=== PATIENT | male | born 1965 | race Asian ===

== ENCOUNTER 2023-11-23 01:24 | Observation (INO) ==
--- NOTE | 2023-11-23 01:49 | Emergency Department Note ---
Impression & Plan Cholecystitis, Cholelithiasis ED Provider Note CHIEF COMPLAINT: Left upper quadrant abdominal pain HISTORY OF PRESENTING ILLNESS: This 57-year-old male patient presents to the emergency department with a friend for evaluation of left upper quadrant abdominal pain that started 2 hours prior to arrival. The pain came on suddenly. He is also having a lot of nausea and vomiting from the pain and symptoms. Denies any urinary symptoms. He denies any diarrhea, constipation, or problems with his BMs. Denies chest pain or SOB. Denies any fevers. Denies cough or URI symptoms. Denies any reflux symptoms. He states that he had similar symptoms many years ago, but unsure what he was diagnosed with. Denies any known history of pancreatitis. Denies ETOH use. Denies any drug use. Smokes 1 pack a day. No recent changes in medications. He rates the pain as sharp and 10/10. The patient did eat a chili pepper 1 hour prior to the symptoms starting. Last food and drink was at 10 pm and he had vegetables, rice, meat, and a drink. REVIEW OF SYSTEMS: See HPI for pertinent positives and pertinent negatives. ALLERGIES: NKDA MEDICATIONS: None PAST MEDICAL HISTORY: Denies pertinent past medical or pertinent past surgical history PHYSICAL EXAM: VITALS: Vitals are noted on the nurse's note and reviewed by myself. GENERAL: The patient appears in pain and nauseous. He is sticking his fingers down his throat to try and vomit. However, otherwise non toxic and non- diaphoretic. SKIN: Capillary refill <2 sec. EYES: PERRLA. EOMI. Conjunctivae without injection, sclerae without icterus. NOSE: Patent without discharge. MOUTH: Mucous membranes moist. Uvula midline. Airway patent. NECK: Supple without nuchal rigidity. HEART: Regular rate and rhythm without murmurs gallops or rubs. LUNGS: Clear to auscultation bilaterally without wheezes, rales or rhonchi. No retractions or accessory muscle use. ABDOMEN: Positive bowel sounds x 4. Normal tympanic percussion. Soft, tender to palpation diffusely in the upper quadrants, but worse in the epigastric area and RUQ. No masses or organomegaly. No CVA tenderness. Armenta sign positive. No guarding or rebound tenderness. No focal RLQ or LLQ tenderness. MUSCULOSKELETAL: No gross musculoskeletal defects. NEURO: Patient was alert and oriented. No focal neurological deficits. DIFFERENTIAL DIAGNOSIS: Differential diagnosis includes hepatitis, pancreatitis, cholecystitis, cholelithiasis, appendicitis, kidney stone, pyelonephritis, UTI, gastritis, gastroenteritis, mesenteric adenitis, obstruction, constipation, hernia, abdominal abscess, perforation, diverticulitis, IBD, ischemic colitis, abdominal aortic aneurysm, testicular torsion, prostatitis, or others. ED COURSE AND MEDICAL DECISION MAKING: HISTORY FROM INDEPENDENT HISTORIAN: [employer] regulatory intern was used for all communication. MONITOR: Continuous radiation monitor: Order was placed for continuous radiation monitor. Patient was placed on the radiation monitor and continuous pulse ox. Patient was noted to be in normal sinus rhythm at an initial rate of 90 bpm per my interpretation. EKG: EKG was interpreted by myself as normal sinus rhythm at 65 bpm, but no acute ST or T wave changes. MEDICATIONS GIVEN: 2 L normal saline solution bolus, Tylenol 1000 mg IV, Pepcid 20 mg IV, morphine 4 mg IV x 2, Zofran 4 mg IV. K rider. Zosyn 4.5 g IV. INTERPRETATION OF LABS: I interpreted the labs with full lab results as below in the lab section of this note. White blood cell count elevated at 12.88. Hemoglobin normal at 16. Platelet count normal at 191. PT/INR normal. Potassium low at 3.0 and glucose 141. CMP otherwise normal. Lipase normal. High-sensitivity troponin normal. Lactate elevated at 2.1. Repeat lactate level 1.5. Urinalysis with trace glucose, trace ketones, and trace blood without evidence for UTI. Blood cultures pending. INTERPRETATION OF IMAGING: Imaging studies were interpreted by myself and read by radiology as per the imaging section of this note. CT scan of the abdomen pelvis with IV contrast showed cholelithiasis. Prominent calculus noted at the cystic duct measures up to 1.4 cm. Associated with this is gallbladder wall thickening and adjacent stranding. Findings are favored to relate to cholecystitis. The common duct measures up to 1 cm in diameter without evidence of calculus. Findings may be due to extrinsic compression. If there is concern consider MRCP. Mild segmental loss of corticomedullary differentiation noted in the kidneys bilaterally. Findings may be due to sequelae of concurrent pyelonephritis. Consider correlation with laboratory values. Right upper quadrant ultrasound pending at the time of shift change. CONSULTATIONS: Dr. Adhikari of surgery. MDM SUMMARY: I examined the patient. The patient presents with sudden onset of right upper quadrant and epigastric abdominal pain, nausea, and vomiting. The patient was actively vomiting during my exam. An IV lock was placed and labs were drawn. The patient was medicated with IV Tylenol, IV Pepcid, IV morphine, and IV Zofran with improvement of his symptoms. White blood cell count elevated at 12.88 and lactate elevated at 2.1. The patient was given 2 L normal saline solution bolus based on actual body weight. Blood cultures are pending, but there was a delay in obtaining blood cultures by the lab. Antibiotics were not given until after blood cultures were drawn. The patient was given Zosyn 4.5 g IV. The repeat lactate was not automatically reflex ordered and there was also a recollection delay once the repeat lactate level was ordered. Repeat lactate level 1.5. Potassium was low at 3.0 and he was given a K rider. EKG and high-sensitivity troponin were normal and I have a low suspicion for ACS. Lipase was normal. Urinalysis negative for UTI. LFTs and bilirubin were normal. CT scan of the abdomen pelvis with IV contrast showed cholelithiasis as well as cholecystitis. The common bile duct is dilated up to 1 cm, but no evidence of calculus and this may be due to extrinsic compression per radiology. The patient's LFTs and bilirubin are normal. The patient is considered moderate to low risk per cholecystitis protocol. I contacted Dr. Adhikari of surgery. She recommended a right upper quadrant ultrasound for further evaluation prior to determining whether the patient can be admitted for inpatient MRCP or if the patient would require transfer. Due to change of shift, the patient's care was transferred to Isidra Etienne PA-C. The results of the right upper quadrant ultrasound were still pending at the time of shift change. Please refer to her dictation for further details. The patient's care was transferred in stable condition. DIAGNOSIS: Cholelithiasis with cholecystitis seen on CT scan with right upper quadrant ultrasound pending for further evaluation Past Med/Surg History Problem List (Updated 11/23/23 @ 07:58 by Bonnie Jett PA-C) Cholelithiasis (Acute) Cholecystitis (Acute) Social History Smoking Status: Never smoker Feels Safe at Home: Yes Allergies Allergies Allergy/AdvReac Type Severity Reaction Status Date / Time No Known Allergies Allergy Verified 11/23/23 01:40 Home Meds Home Medications Medication Instructions Recorded Confirmed No Known Home Medications 11/23/23 11/23/23 Results & Data (ED) Vital Signs Vital Signs - 24 hr 11/23/23 01:26 11/23/23 01:31 11/23/23 01:54 Temperature 37.2 C Temperature Source Temporal Artery Scan Pulse Rate 70 64 69 Pulse Rate from SpO2 Sensor 68 Respiratory Rate 18 20 24 Respiratory Effort / Characteristics Non-Labored Spontaneous Respiratory Depth Normal Respiratory Pattern Regular Blood Pressure 179/98 H 146/114 H Blood Pressure Mean 125 124 Blood Pressure Position Sitting Pulse Oximetry 98 98 99 Oxygen Delivery Method Room Air Room Air Room Air Sepsis Recent Fever Within 48 Hours No Sepsis New/Unexplained Change in Mental Status No Sepsis Action Taken by Nursing No Action Required 11/23/23 01:55 11/23/23 03:30 11/23/23 04:00 Temperature Temperature Source Pulse Rate 67 70 73 Pulse Rate from SpO2 Sensor 70 Respiratory Rate 21 22 Respiratory Effort / Characteristics Respiratory Depth Respiratory Pattern Blood Pressure 184/107 H 184/103 H Blood Pressure Mean 132 119 Blood Pressure Position Pulse Oximetry 92 92 Oxygen Delivery Method Sepsis Recent Fever Within 48 Hours Sepsis New/Unexplained Change in Mental Status Sepsis Action Taken by Nursing 11/23/23 05:48 Temperature Temperature Source Pulse Rate 71 Pulse Rate from SpO2 Sensor Respiratory Rate Respiratory Effort / Characteristics Respiratory Depth Respiratory Pattern Blood Pressure Blood Pressure Mean Blood Pressure Position Pulse Oximetry Oxygen Delivery Method Sepsis Recent Fever Within 48 Hours Sepsis New/Unexplained Change in Mental Status Sepsis Action Taken by Nursing Laboratory Data 11/23/23 01:50 11/23/23 01:50 Lab Results 11/23/23 11/23/23 11/23/23 Range/Units 01:50 03:00 05:55 WBC 12.88 H (4.8-10.8) K/ul RBC 5.39 (4.70-6.10) M/uL Hgb 16.0 (14.0-18.0) g/dl Hct 47.6 (42.0-52.0) % MCV 88.3 (80.0-100.0) fL MCH 29.7 (25.0-34.0) pg MCHC 33.6 (32.0-36.0) g/dL RDW Std Deviation 41.1 (36.4-46.3) fL RDW Coeff of Mars 12.6 (11.5-14.5) % Plt Count 191 (130-400) K/uL MPV 9.8 (9.4-12.4) fL Immature Gran % (Auto) 0.3 % Neut % (Auto) 77.0 % Lymph % (Auto) 16.8 % Wake % (Auto) 4.8 % Eos % (Auto) 0.8 % Baso % (Auto) 0.3 % Neut # (Auto) 9.92 H (1.40-6.50) K/uL Lymph # (Auto) 2.16 (1.20-3.40) K/uL Wake # (Auto) 0.62 H (0.11-0.59) K/uL Eos # (Auto) 0.10 (0.00-0.50) K/uL Baso # (Auto) 0.04 (0.00-0.20) K/uL Immature Gran # (Auto) 0.04 (0.01-0.20) K/uL PT 10.6 (9.0-12.0) Seconds INR 1.0 (0.9-1.1) Sodium 142 (136-145) mmol/L Potassium 3.0 L (3.5-5.1) mmol/L Chloride 102 (98-107) mmol/L Carbon Dioxide 29 (21-32) mmol/L Anion Gap 11 (3-11) BUN 14 (6-23) mg/dl Creatinine 1.13 (0.6-1.4) mg/dl Est Cr Clr Drug Dosing 61.1 ml/min Est GFR ( Amer) 84.3 ml/min Est GFR (Non-Af Amer) 72.8 ml/min BUN/Creatinine Ratio 12.4 (10-20) Glucose 141 H (70-99(Fasting)) mg/dl Lactate 2.1 H* 1.5 (0.4-2.0) mmol/L Calcium 9.6 (8.6-10.3) mg/dl Total Bilirubin 0.7 (0.2-1.0) mg/dl AST 14 (13-39) U/L ALT 9 (7-52) U/L Alkaline Phosphatase 58 (34-104) U/L Troponin I High Sens 5.8 (0-20) pg/ml Total Protein 7.6 (6.0-8.3) gm/dl Albumin 4.5 (3.4-5.0) gm/dl Globulin 3.1 (2.5-4.0) gm/dl Albumin/Globulin Ratio 1.5 (0.9-2) Lipase 50 (11-82) U/L Urine Color Yellow Urine Appearance Clear (Clear) Urine pH 8.0 H (4.5-7.5) Ur Specific [place] 1.007 (1.000-1.030) Urine Protein Negative (Negative) Urine Glucose (UA) Trace H (Negative) Urine Ketones Trace H (Negative) Urine Blood Trace H (Negative) Urine Nitrite Negative (Negative) Urine Bilirubin Negative (Negative) Urine Urobilinogen Negative (Negative) Ur Leukocyte Esterase Negative (Negative) Urine WBC (Auto) 0-5 (0-5) /hpf Urine RBC (Auto) 3-5 H (0-2) /hpf U Hyaline Cast (Auto) 0-2 (0-2) /lpf U Epithel Cells (Auto) 0-2 (0-2) /hpf Urine Bacteria (Auto) None Seen (None Seen) Administered Medications Discontinued Medications Acetaminophen (Ofirmev) 1,000 mg in 100 mls @ 400 mls/hr IV NOW STA Stop: 11/23/23 02:20 Last Infusion: 11/23/23 02:43 Dose: Infused Documented By: Admin: 11/23/23 02:10 Dose: 400 mls/hr Documented By: JOHNNIE Famotidine (Pepcid 20mg Iv Push) 20 mg in 5 mls @ 2.5 mls/min IV NOW STA Stop: 11/23/23 02:07 Last Admin: 11/23/23 02:10 Dose: 2.5 mls/min Documented By: JOHNNIE Sodium Chloride (Nss) 1,000 mls @ 999 mls/hr IV .Q1H1M ONE Stop: 11/23/23 03:07 Last Infusion: 11/23/23 03:44 Dose: Infused Documented By: Admin: 11/23/23 02:10 Dose: 999 mls/hr Documented By: JOHNNIE Sodium Chloride (Nss) 1,000 mls @ 999 mls/hr IV .Q1H1M ONE Stop: 11/23/23 03:40 Last Infusion: 11/23/23 05:10 Dose: Infused Documented By: Admin: 11/23/23 03:26 Dose: 999 mls/hr Documented By: WANDA Potassium Chloride (K Michi / Wtr) 10 meq in 100 mls @ 100 mls/hr IV ONE ONE Stop: 11/23/23 03:40 Last Infusion: 11/23/23 05:09 Dose: Infused Documented By: Admin: 11/23/23 03:25 Dose: 100 mls/hr Documented By: WANDA Piperacillin Sod/Tazobactam Sod (Zosyn) 4.5 gm in 100 mls @ 200 mls/hr IV NOW ONE Stop: 11/23/23 05:08 Last Infusion: 11/23/23 06:08 Dose: Infused Documented By: Admin: 11/23/23 05:15 Dose: 200 mls/hr Documented By: WANDA Ioversol (Optiray 320 100ml) 94 ml IV ONCE ONE Stop: 11/23/23 04:14 Last Admin: 11/23/23 04:13 Dose: 94 ml Documented By: WILLY Morphine Sulfate (Morphine Sulfate 4 Mg/Ml 1 Ml Carp\Vial) 4 mg IV NOW STA Stop: 11/23/23 03:16 Last Admin: 11/23/23 03:20 Dose: 4 mg Documented By: WANDA Morphine Sulfate (Morphine Sulfate 4 Mg/Ml 1 Ml Carp\Vial) 4 mg IV NOW STA Stop: 11/23/23 05:37 Last Admin: 11/23/23 07:21 Dose: Not Given Documented By: MEL Ondansetron HCl (Ondansetron Inj 2 Mg/Ml 2 Ml Vial) Confirm Administered Dose 4 mg .ROUTE .STK-MED ONE Stop: 11/23/23 01:48 Last Admin: 11/23/23 02:10 Dose: 4 mg Documented By: RIDGEW Imaging Data Radiologist's Impression: Abdomen/Pelvis CT 11/23/23 01:32 CR Exam(s): CT ABDOMEN + PELVIS With Contrast IV Amt: 94 ml opti 320 EXAM: CT Abdomen and Pelvis With Intravenous Contrast CLINICAL HISTORY: Reason for exam: abdominal pain. TECHNIQUE: Axial computed tomography images of the abdomen and pelvis with intravenous contrast. CTDI is 8.58 mGy and DLP is 517 mGy-cm. Automated exposure control was utilized for the study. A dose lowering technique was utilized adhering to the principles of ALARA. CONTRAST: Patient received 94 ml opti 320 of IV contrast COMPARISON: No relevant prior studies available. FINDINGS: Lung bases: Mild dependent atelectatic changes. Heart: Cardiomegaly. Coronary artery calcifications. ABDOMEN: Liver: Mild intrahepatic biliary dilatation. No mass detected. Gallbladder and bile ducts: Cholelithiasis. Prominent calculus noted at the cystic duct measures up to 1.4 cm. Associated with this is gallbladder wall thickening and adjacent stranding. Findings are favored to relate to cholecystitis. The common duct measures up to 1.0 cm in diameter without evidence of calculus. Findings may be due to extrinsic compression. If there is further concern, consider MRCP. Pancreas: Unremarkable. No mass. No ductal dilation. Spleen: Unremarkable. No splenomegaly. Adrenals: Unremarkable. No mass. Kidneys and ureters: Simple bilateral renal cysts. No follow-up of these simple cysts is necessary. Mild segmental loss of corticomedullary differentiation noted in the kidneys bilaterally. Findings may be due to sequela of concurrent pyelonephritis. Consider correlation with laboratory values. No hydronephrosis. Stomach and bowel: No evidence of bowel obstruction. No mucosal thickening. PELVIS: Appendix: Normal appendix. Bladder: Unremarkable. No mass. Reproductive: Prostatic calcifications. ABDOMEN and PELVIS: Intraperitoneal space: Unremarkable. No free air. No significant fluid collection. Bones/joints: Degenerative changes in the spine. No acute fracture. No dislocation. Soft tissues: Gynecomastia. Umbilical hernia containing fat. Vasculature: Atherosclerotic disease. No abdominal aortic aneurysm. Lymph nodes: Unremarkable. No enlarged lymph nodes. IMPRESSION: 1. Cholelithiasis. Prominent calculus noted at the cystic duct measures up to 1.4 cm. Associated with this is gallbladder wall thickening and adjacent stranding. Findings are favored to relate to cholecystitis. 2. The common duct measures up to 1.0 cm in diameter without evidence of calculus. Findings may be due to extrinsic compression. If there is further concern, consider MRCP. 3. Mild segmental loss of corticomedullary differentiation noted in the kidneys bilaterally. Findings may be due to sequela of concurrent pyelonephritis. Consider correlation with laboratory values. 4. Other incidental findings as described. Communications: Verify Receipt Electronically signed by: Raffaele Medina MD 11/23/23 04:36 AM Discharge Plan Visit Data Chief Complaint: Abdominal Pain ED Provider: Chioma Uriarte ED Midlevel Provider: Scottie Etienne Discharge Problem: Cholecystitis, Cholelithiasis Patient Disposition: Still a Patient Forms Stand Alone Forms: [facility] Processing Prescriptions Prescriptions: No Action No Known Home Medications Referrals Referrals: PCP,NO [Primary Care Provider] -
[2023-11-23] MEDS: FAMOTIDINE 20MG IV PUSH 20 MG/5 ML SYR IV STA (02:10)
[2023-11-23] MEDS: SODIUM CHLORIDE 0.9% 1,000 ML IV ONE ×2 (02:10→03:26)
[2023-11-23] MEDS: ACETAMINOPHEN 1,000 MG/100 ML VIAL IV STA (02:10)
[2023-11-23] MEDS: ONDANSETRON INJ 2 MG/ML 2 ML VIAL ONE (02:10)
[2023-11-23 02:11] LABS: Basophils # (auto) 0.04 K/uL (0.00-0.20); Basophils % (auto) 0.3 %; Eosinophils % (auto) 0.8 %; Hematocrit (blood only) 47.6 % (42.0-52.0); Immature Granulocytes # (auto) 0.04 K/uL (0.01-0.20); Immature Granulocytes % (auto) 0.3 %; Lymphocytes # (auto) 2.16 K/uL (1.20-3.40); Lymphocytes % (auto) 16.8 %; Mean Corpuscular Hemoglobin 29.7 pg (25.0-34.0); Mean Corpuscular Hgb Conc 33.6 g/dL (32.0-36.0); Mean Corpuscular Volume 88.3 fL (80.0-100.0); Mean Platelet Volume 9.8 fL (9.4-12.4); Monocytes # (auto) 0.62 K/uL (0.11-0.59); Monocytes % (auto) 4.8 %; Neutrophils # (auto) 9.92 K/uL (1.40-6.50); Platelet Count 191 K/uL (130-400); RDW Coefficient of Variation 12.6 % (11.5-14.5); RDW Standard Deviation 41.1 fL (36.4-46.3); Red Blood Count 5.39 M/uL (4.70-6.10); White Blood Count 12.88 K/ul (4.8-10.8)
[2023-11-23 02:24] LABS: Albumin Level 4.5 gm/dl (3.4-5.0); Bilirubin,Total 0.7 mg/dl (0.2-1.0); Calcium 9.6 mg/dl (8.6-10.3)
[2023-11-23 02:31] LABS: Albumin Globulin Ratio 1.5 (0.9-2); BUN Creatinine Ratio 12.4 (10-20); Creatinine Clr Calc Pharmacy 61.1 ml/min; Est GFR (African American) 84.3 ml/min; Est GFR (Non-African American) 72.8 ml/min; Globulin 3.1 gm/dl (2.5-4.0); Total Protein 7.6 gm/dl (6.0-8.3)
[2023-11-23 02:32] LABS: Prothrombin Time 10.6 Seconds (9.0-12.0)
[2023-11-23 02:36] LABS: Troponin I High Sensitivity 5.8 pg/ml (0-20)
[2023-11-23] MEDS: MoRPHine SULFATE 4 MG/ML 1 ML CARP\\VIAL IV STA ×2 (03:20→07:21)
[2023-11-23] MEDS: POTASSIUM CHLORIDE / WTR 10 MEQ/100 ML PLCT IV ONE (03:25)
[2023-11-23 03:29] LABS: Appearance Urine Clear (Clear); Bacteria Urine Automated None Seen (None Seen); Bilirubin Urine Negative (Negative); Blood Urine Trace (Negative); Cast Urine Automated 0-2 /lpf (0-2); Color Urine Yellow; Epithelial Cell Urine Auto 0-2 /hpf (0-2); Glucose Urine UA Trace (Negative); Ketones Urine Trace (Negative); Leukocyte Esterase Urine Negative (Negative); Nitrite Urine Negative (Negative); Protein Urine Negative (Negative); Specific Gravity Urine 1.007 (1.000-1.030); Urobilinogen Urine Negative (Negative); WBC Urine Automated 0-5 /hpf (0-5)
[2023-11-23] MEDS: OPTIRAY 320 100ml IV ONE (04:13)
--- NOTE | 2023-11-23 04:37 | CT Scan Report ---
Exam(s): CT ABDOMEN + PELVIS With Contrast IV Amt: 94 ml opti 320 EXAM: CT Abdomen and Pelvis With Intravenous Contrast CLINICAL HISTORY: Reason for exam: abdominal pain. TECHNIQUE: Axial computed tomography images of the abdomen and pelvis with intravenous contrast. CTDI is 8.58 mGy and DLP is 517 mGy-cm. Automated exposure control was utilized for the study. A dose lowering technique was utilized adhering to the principles of ALARA. CONTRAST: Patient received 94 ml opti 320 of IV contrast COMPARISON: No relevant prior studies available. FINDINGS: Lung bases: Mild dependent atelectatic changes. Heart: Cardiomegaly. Coronary artery calcifications. ABDOMEN: Liver: Mild intrahepatic biliary dilatation. No mass detected. Gallbladder and bile ducts: Cholelithiasis. Prominent calculus noted at the cystic duct measures up to 1.4 cm. Associated with this is gallbladder wall thickening and adjacent stranding. Findings are favored to relate to cholecystitis. The common duct measures up to 1.0 cm in diameter without evidence of calculus. Findings may be due to extrinsic compression. If there is further concern, consider MRCP. Pancreas: Unremarkable. No mass. No ductal dilation. Spleen: Unremarkable. No splenomegaly. Adrenals: Unremarkable. No mass. Kidneys and ureters: Simple bilateral renal cysts. No follow-up of these simple cysts is necessary. Mild segmental loss of corticomedullary differentiation noted in the kidneys bilaterally. Findings may be due to sequela of concurrent pyelonephritis. Consider correlation with laboratory values. No hydronephrosis. Stomach and bowel: No evidence of bowel obstruction. No mucosal thickening. PELVIS: Appendix: Normal appendix. Bladder: Unremarkable. No mass. Reproductive: Prostatic calcifications. ABDOMEN and PELVIS: Intraperitoneal space: Unremarkable. No free air. No significant fluid collection. Bones/joints: Degenerative changes in the spine. No acute fracture. No dislocation. Soft tissues: Gynecomastia. Umbilical hernia containing fat. Vasculature: Atherosclerotic disease. No abdominal aortic aneurysm. Lymph nodes: Unremarkable. No enlarged lymph nodes. IMPRESSION: 1. Cholelithiasis. Prominent calculus noted at the cystic duct measures up to 1.4 cm. Associated with this is gallbladder wall thickening and adjacent stranding. Findings are favored to relate to cholecystitis. 2. The common duct measures up to 1.0 cm in diameter without evidence of calculus. Findings may be due to extrinsic compression. If there is further concern, consider MRCP. 3. Mild segmental loss of corticomedullary differentiation noted in the kidneys bilaterally. Findings may be due to sequela of concurrent pyelonephritis. Consider correlation with laboratory values. 4. Other incidental findings as described. Communications: Verify Receipt Electronically signed by: Raffaele Medina MD 11/23/23 04:36 AM
[2023-11-23] MEDS: PIPERACILLIN/TAZOBACTAM 4.5 GM/100 ML BAG IV ONE (05:15)
--- NOTE | 2023-11-23 08:02 | Ultrasound Report ---
ABDOMINAL ULTRASOUND, RIGHT UPPER QUADRANT HISTORY: Cholelithiasis/cholecystitis on CT with CBD dilated. COMPARISON: Abdomen and pelvis CT 11/23/2023. FINDINGS: Pancreas: The pancreas demonstrates a normal echotexture. Liver: Mild central intrahepatic bile duct dilatation. No hepatic masses. Gallbladder: Diffuse gallbladder wall thickening with a few gallstones and a small amount of sludge. Gallbladder is distended. A sonographic Armenta's sign was unable to be assessed due to the on board p ain medication. There is also a 1.2 cm gallstone within the neck of the gallbladder which could be im pacted. CBD: Borderline dilated up to 6.6 mm. No stones identified. Right kidney: No hydronephrosis. There is a 1.9 cm lesion within the upper pole the right kidney whic h demonstrates internal echoes. This may represent a complex cyst. IMPRESSION: 1. Distended gallbladder with diffuse gallbladder wall thickening, gallstones, a small amount of slud ge. There is also a 1.2 cm gallstone within the neck of the gallbladder which may be impacted. Theref ore, these findings are highly suspicious for acute cholecystitis. Surgical consultation recommended. 2. Borderline dilated common carotid measuring 6.6 mm. No common bile duct stones identified. 3. A 1.9 cm complex cystic lesion within the upper pole the right kidney. This may represent a hemorr hagic cyst. Consider follow-up nonemergent dedicated renal MRI or CT to exclude a cystic renal mass. ACT 112: Positive. There are findings on this exam that require communication between the performing entity and the patient following Patient Test Result Information Act ([place] Act 112) guidelines. Electronically signed by: Viktor Ha M.D. 11/23/2023 8:00 AM
--- NOTE | 2023-11-23 09:33 | Emergency Department Note ---
ED Visit Note ED NOTE: Received this patient in signout from Janet Jett PA-C, at change of shift. Refer to her dictation for the complete history, physical exam and ED course to this point. Briefly patient is a 57-year-old male who presented to the emergency department for evaluation of upper abdominal pain, abrupt in onset with associated nausea and vomiting. Change of shift, ultrasound the gallbladder was pending. Laboratory studies and CT scan already performed were reviewed by myself. Ultrasound per my interpretation notes the gallbladder to be distended, with gallbladder wall thickening, stones and sludge. Findings are concerning for acute cholecystitis. I did review the patient with Shellie Rothman PA-C, working with Dr. Robson Knight this morning. They evaluated the patient in the emergency department and are going to take him to the OR. Please refer to surgical H&P for further information.
--- NOTE | 2023-11-23 09:37 | Surgery Consultation ---
Date of Consultation November 23, 2023 Assessment & Plan (1) Cholelithiasis: Patient see and examined with Dr. Adhikari. Recent ED labwork and imaging reviewed. There is a 1.2 cm gallstone located in the neck of the gallbladder. Patient is tender with palpation in right upper quadrant. Recommendation is surgical removal of gallbladder. Patient has been booked for Laparoscopic Cholecystectomy, Possible Open Cholecystectomy with Possible Intraoperative Cholangiogram in OR today. He has been NPO since last e vening at 10PM. He has no history of abdominal surgeries. He does not currently take any daily medications or supplements. He is a current smoker. Risks of surgery were reviewed with patient by Dr. Adhikari. Consent for surgery signed by patient with Dr. dAhikari. Patient likely to be admitted for overnight observation with possible discharge tomorrow depending on intraoperative findings and post-op course. History of Present Illness Reason for Consultation: Acute Cholecystitis History of Present Illness History and Physical obtained with use of translator and interpreter services: 57-year-old male with right upper quadrant abdominal pain that began last night around 10PM. He notes that he has had episodes of pain like this before. When he arrived to ED, he did admit to nausea and vomiting. His nausea is improved with IV medications. His last oral intake was at 10PM last night. He denies any past abdominal surgeries. ED course: Labwork shows slightly elevated WBC at 12.88, Total Bilirubin 0.7; AST 14; ALT 9; Alk Phos 58 CT of abdomen IMPRESSION: 1. Cholelithiasis. Prominent calculus noted at the cystic duct measures up to 1.4 cm. Associated with this is gallbladder wall thickening and adjacent stranding. Findings are favored to relate to cholecystitis. 2. The common duct measures up to 1.0 cm in diameter without evidence of calculus. Findings may be due to extrinsic compression. 3. Mild segmental loss of corticomedullary differentiation noted in the kidneys bilaterally. Findings may be due to sequela of concurrent pyelonephritis. Consider correlation with laboratory values. Gallbladder ultrasound was obtained which showed: IMPRESSION: 1. Distended gallbladder with diffuse gallbladder wall thickening, gallstones, a small amount of sludge. There is also a 1.2 cm gallstone within the neck of the gallbladder which may be impacted. Therefore, these findings are highly suspicious for acute cholecystitis. Surgical consultation recommended. 2. Borderline dilated common carotid measuring 6.6 mm. No common bile duct stones identified. 3. A 1.9 cm complex cystic lesion within the upper pole the right kidney. This may represent a hemorrhagic cyst. Consider follow-up nonemergent dedicated renal MRI or CT to exclude a cystic renal mass. Allergies Allergy/AdvReac Type Severity Reaction Status Date / Time No Known Allergies Allergy Verified 11/23/23 01:40 Home Medications Medication Instructions Recorded Confirmed Type No Known Home Medications 11/23/23 11/23/23 History Patient History Social History Smoking Status: Current every day smoker Hx Alcohol Use: Yes Communication Tools: IPad Feels Safe at Home: Yes Review of Systems Constitutional: as per Subjective / HPI; no fever and no chills Respiratory: no cough, no chest congestion, no dyspnea, no dyspnea on exertion and no wheezing Cardiovascular: no chest pain, no chest pain at rest, no chest pain with activity, no radiating jaw, neck or arm pain, no dyspnea, no dyspnea at rest and no dyspnea on exertion Gastrointestinal: + abdominal pain (left and right upper q uadrants), + nausea and + vomiting Physical Exam Constitutional: WD/WN, vitals as above Respiratory: normal respiratory effort; no respiratory distress and no labored breathing Cardiovascular: RRR, no murmur, no edema Gastrointestinal (Abdomen): Inspection/Auscultation: abdomen not distended Percussion/Palpation: + abdomen tender (tender with palpation in right and left upper quadrants) and abdomen soft; no guarding and abdomen not rigid Psychiatric: A+Ox3, euthymic affect Results & Data Vital Signs (Past 12 Hours) Vital Signs Temp Pulse Pulse Resp BP BP Pulse Ox 11/23/23 09:27 68 21 155/96 H 95 11/23/23 07:08 36.7 C 11/23/23 07:00 67 15 166/100 H 95 11/23/23 05:48 71 11/23/23 04:00 73 22 184/103 H 92 11/23/23 03:30 70 21 184/107 H 92 11/23/23 01:55 67 11/23/23 01:54 69 24 146/114 H 99 11/23/23 01:31 37.2 C 64 20 179/98 H 98 11/23/23 01:26 70 18 98 O2 Del Method 11/23/23 09:27 Room Air 11/23/23 07:08 11/23/23 07:00 Room Air 11/23/23 05:48 11/23/23 04:00 11/23/23 03:30 11/23/23 01:55 11/23/23 01:54 Room Air 11/23/23 01:31 Room Air 11/23/23 01:26 Room Air PG Care Time/CCT Total # of Minutes Spent Total Time Spent with Patient: Total time spent is greater than 50% in coordination of care (as documented) at patient's floor/unit and/or counseling patient: Coding Level of Care Code 74623 OFFICE CONSULT LVL M (25 - SIGNIFICANT, SEPARATELY IDENTIFIABLE ) Diagnoses Cholelithiasis K80.20
[2023-11-23] MEDS ORDERED: ACETAMINOPHEN 1000 MG/100 ML IV IV ONE (09:46)
[2023-11-23] MEDS ORDERED: fentaNYL citrate PF 100 MCG/2 ML VIAL ONE (09:59)
[2023-11-23] MEDS ORDERED: MIDAZOLAM HCL 1 MG/ML 2ML VIAL ONE (09:59)
[2023-11-23] MEDS ORDERED: METOCLOPRAMIDE HCL INJ 5 MG/ML 2 ML VIAL ONE (10:04)
[2023-11-23] MEDS ORDERED: ONDANSETRON INJ 2 MG/ML 2 ML VIAL ONE (10:04)
[2023-11-23] MEDS ORDERED: DEXAMETHASONE SOD INJ 4 MG/ML VIAL ONE (10:04)
[2023-11-23] MEDS ORDERED: LIDOCAINE 2% 2 ML VIAL/AMP(20MG/ML) INFIL ONE (10:04)
[2023-11-23] MEDS ORDERED: PROPOFOL IV EMULSION 10 MG/ML 20 ML VIAL IV ONE (10:04)
[2023-11-23] MEDS ORDERED: ROCURONIUM BROMIDE 10 MG/ML 5 ML VIAL IV ONE (10:04)
--- NOTE | 2023-11-23 10:24 | Anesthesiology Consultation ---
Date of Service November 23, 2023 Assessment & Plan Chart Review Chart Review: Acceptable Risk for Surgery and Patient NOT seen in Pre Admission Testing Consults Requested none ASA ASA2E Proposed Anesthesia Anesthesia Type: General Risk / Benefits Reviewed With: PT / POA / Parent / Guardian, Accepts Plan and Informed Consent Obtained History Surgery Operation Date: 11/23/23 10:45 Proposed Procedures p Laparoscopic Cholecystectomy - Alex Adhikari DO Height/Weight Height: 5 ft 9.29 in Weight: 58.5 kg Allergies Allergy/AdvReac Type Severity Reaction Status Date / Time No Known Allergies Allergy Verified 11/23/23 01:40 Medications Home Medications Medication Instructions Recorded Confirmed Last Taken No Known Home Medications 11/23/23 11/23/23 Unknown NPO Date Last Intake of Fluids: 11/22/23 Time Last Intake of Fluids: 22:00 Date Last Intake of Solids: 11/22/23 Time Last Intake of Solids: 22:00 Past Medical History + tobacco smoker HLD HTN ASCVD Aorta coronary artery calcifications Exercise / Class Metabolic Activity II 4-5 Yardwork/Stairs/Walk up hill Past Anesthesia History No Hx of Anesthesia Complications and No Family Hx of Anesthesia Complications History of PONV No Hx of PONV and No Hx of Motion Sickness Social History Smoking Status: Current every day smoker Hx Alcohol Use: Yes Physical Exam Vital Signs Last Vital Signs Temp 36.7 C 11/23/23 07:08 Pulse 68 11/23/23 09:27 Resp 21 11/23/23 09:27 BP 155/96 H 11/23/23 09:27 Pulse Ox 95 11/23/23 09:27 O2 Del Method Room Air 11/23/23 09:27 Constitutional not cachectic ENMT Mouth: + dentition abnormality, + dentures and + dental restorations Thyromental Distance: < 3.5 Finger Breadths Mallampati Class: III Neck normal visual inspection, trachea midline and + facial hair; neck extension not limited Respiratory normal respiratory effort Auscultation: lungs clear to auscultation bilaterally Cardiovascular Rate/Rhythm: regular rate and regular rhythm Heart Sounds: no murmur Vessels: no carotid bruit Musculoskeletal Spine: normal cervical ROM and no pain with cervical ROM Extremities: full ROM of extremities Neurologic moves all extremities Motor/Sensory: no sensory deficit Psychiatric Orientation: alert and oriented x 3 Testing Laboratory Results 11/23/23 01:50 11/23/23 01:50 PT 10.6 Seconds (9.0-12.0) 11/23/23 01:50 INR 1.0 (0.9-1.1) 11/23/23 01:50 Urine Color Yellow 11/23/23 03:00 Urine Appearance Clear (Clear) 11/23/23 03:00 Urine pH 8.0 (4.5-7.5) H 11/23/23 03:00 Ur Specific [place] 1.007 (1.000-1.030) 11/23/23 03:00 Urine Protein Negative (Negative) 11/23/23 03:00 Urine Glucose (UA) Trace (Negative) H 11/23/23 03:00 Urine Ketones Trace (Negative) H 11/23/23 03:00 Urine Nitrite Negative (Negative) 11/23/23 03:00 Ur Leukocyte Esterase Negative (Negative) 11/23/23 03:00 Urine WBC (Auto) 0-5 /hpf (0-5) 11/23/23 03:00 Urine RBC (Auto) 3-5 /hpf (0-2) H 11/23/23 03:00 U Hyaline Cast (Auto) 0-2 /lpf (0-2) 11/23/23 03:00 U Epithel Cells (Auto) 0-2 /hpf (0-2) 11/23/23 03:00 Urine Bacteria (Auto) None Seen (None Seen) 11/23/23 03:00 Electrocardiogram Date: 11/23/23 Findings: + NSR @ (@ 65)
[2023-11-23] MEDS ORDERED: LARYING-O-JET KIT (LTA) ONE (10:32)
[2023-11-23] MEDS ORDERED: ATROPINE SULFATE 0.1 MG/ML 10ML SYR IV PRN (10:36)
[2023-11-23] MEDS ORDERED: LABETALOL HCL IV 5 MG/ML 20ML IV PRN (10:36)
[2023-11-23] MEDS ORDERED: ePHEDrine sulfate 50 MG/ML AMP IV PRN (10:36)
[2023-11-23] MEDS ORDERED: FLUMAZENIL 0.1 MG/1 ML 10 ML VIAL IV PRN (10:36)
[2023-11-23] MEDS ORDERED: PROMETHAZINE HCL 6.25 MG in SODIUM CHLORIDE 0.9% 50 ML IV PRN (10:36)
[2023-11-23] MEDS ORDERED: ONDANSETRON INJ 2 MG/ML 2 ML VIAL IV PRN ×2 (10:36→12:57)
[2023-11-23] MEDS ORDERED: fentaNYL citrate PF 100 MCG/2 ML VIAL IV PRN (10:36)
[2023-11-23] MEDS ORDERED: NALOXONE HCL 0.4 MG/1 ML VIAL/CARP IV PRN (10:36)
[2023-11-23] MEDS ORDERED: HYDROmorphone INJ 1 MG/ML SYRINGE IV PRN (10:36)
[2023-11-23] MEDS ORDERED: ePHEDrine sulfate 50 MG/5 ML SYR ONE (11:11)
[2023-11-23] MEDS ORDERED: PHENYLEPHRINE 100MCG/ML 10ML SYR IV ONE (11:11)
[2023-11-23] MEDS ORDERED: SUGAMMADEX SODIUM 200 MG/2 ML VIAL IV ONE (11:55)
[2023-11-23] MEDS: BUPIVACAINE/EPINEPHRINE 0.5% MPF 1:200,000 30 ML VIAL ONE (12:43)
[2023-11-23] MEDS: cefOXitin SOD 1,000 MG VIAL ONE (12:53)
[2023-11-23] MEDS: ceFAZolin 2000MG 2,000 MG/15 ML SYR IV ONE (12:53)
[2023-11-23] MEDS ORDERED: ACETAMINOPHEN 500 MG TAB PO PRN (12:57)
[2023-11-23] MEDS ORDERED: PROMETHAZINE HCL 12.5 MG in SODIUM CHLORIDE 0.9% 50 ML IV PRN (12:57)
[2023-11-23] MEDS ORDERED: oxyCODONE/ACETAMINOPHEN 5mg/325mg TAB PO PRN ×2 (12:57)
--- NOTE | 2023-11-23 13:03 | Operative Report ---
PG Post Operative Report Pre & Post Diagnosis Operation Date: 11/23/23 10:45 Pre-Op Diagnosis: Cholelithiasis Post-Op Diagnosis: Cholelithiasis I identified the patient and participated in the time-out.: Yes Procedure Operation Date: 11/23/23 10:45 Actual Procedures p Laparoscopic Cholecystectomy(Not Applicable) - Alex Adhikari DO Surgeon Alex Adhikari DO Animal Treatment Investigator JAIME Hensley Estimated Blood Loss 5 Findings See Below Very edematous, thickened gallbladder with pericholecystic fluid. Difficult gallbladder. Specimens Gallbladder Drains None Anesthesia Type General Complications None Indications 57-year-old male with acute cholecystitis ongoing right upper quadrant pain Description of Procedure The patient was brought back to the operating room and placed on the operating room table in supine position. He was connected to cardiac and oxygen monitoring. Supplemental O2 was provided and SCDs were applied to bilateral lower extremities. The patient was administered general anesthesia and a secure airway was established. The abdomen was prepped and draped in typical sterile fashion and a timeout was conducted. Local anesthetic was injected into the skin and subcutaneous tissue at the infraumbilical fold and a small stab incision was made using an 11 blade. A Veress needle was used to gain access to the intra-abdominal space and pneumoperitoneum was established local pressure 15 mmHg using CO2 insufflation. A 5 mm trocar was inserted using direct visualization with a 5 mm Visiport and laparoscope. Once in the intra-abdominal space, the gallbladder was noted distended at the right upper quadrant. Attention was turned to the epigastric area where an 11 mm trocar was inserted under direct visualization after anesthetizing the skin and making an incision with 11 blade. 2 additional 5 mm trocars were inserted at the right subcostal margin in the same fashion and using direct visualization. There were no injuries because any intra-abdominal contents upon the insertion of any of the trocars or Veress needle. The gallbladder was very distended and was grasped at the fundus to be retracted superiorly. There were soft adhesions to the lower half of the gallbladder which were carefully dissected away using blunt dissection with the suction device. Due to the distention of the gallbladder and difficulty with retraction retraction was difficult secondary to significant distention and the grasper had to be altered multiple times to better aid in visualization and retraction. The infundibulum was grasped and further blunt dissection was performed in an effort to expose the cystic triangle. A structure came into view the appeared to be the cystic duct but this had extensive thickened bands of adhesion wrapping around from the lower portion of the gallbladder so further careful blunt dissection was performed to completely expose the structure and confirm that it was in fact the cystic duct. To further confirm, the full cystic triangle was completely dissected. There was a small amount of bleeding from the lymph node. This was controlled using gentle cautery. The fatty tissue here was extremely thickened and small amounts of bleeding occurred with blunt dissection. Eventually the critical view was fully obtained identifying the cystic duct, cystic artery and the belly of the gallbladder at the liver bed. At this time the cystic duct and cystic artery were ligated with 5 mm clips and transected. The gallbladder was carefully dissected away from the liver bed using cautery. Bleeding throughout this part of the dissection was controlled with cautery at the liver bed. The gallbladder was placed in an Endo Catch bag and removed from the abdomen via epigastric incision. Of note this incision did have to be enlarged at the level of the peritoneum and muscle to remove the gallbladder which contained very large stones. The gallbladder was placed in a label container and sent to pathology for further analysis. The liver bed was inspected multiple times for bleeding. There was no bleeding identified. The area had been copiously irrigated and ir rigant was suctioned away. All instruments were removed from the abdomen, CO2 insufflation was discontinued, and excess pneumoperitoneum was evacuated. The epigastric incision was closed at the level of the fascia with 0 Vicryl sutures. Additional local anesthetic was injected at this incision site as well as the other 3 incision sites. The deep dermis at the epigastric incision was approximated using 3-0 Vicryl suture. The umbilical and 2 subcostal incisions were closed with a subcuticular stitch using 4-0 Vicryl. The abdomen was wiped clean with a saline soaked lap pad and dried. All incisions were dressed with Dermabond. The patient tolerated the procedure well. He was awakened from anesthesia, the secure airway was removed and the patient was transferred to recovery in stable condition. The assistance role in this case was to help with retraction and consistent exposure throughout the case to a critical dissection as well as skin closure. I attest to the content of the Intraoperative Record and any orders documented therein. Any exceptions are noted below.
--- NOTE | 2023-11-23 14:29 | Anesthesiology Progress Note ---
Date of Service November 23, 2023 Anesthesia Post Procedure Vital Signs Vital Signs: Temp Pulse Pulse Pulse Resp BP BP 11/23/23 14:20 36.8 C 73 16 148/82 H 11/23/23 14:05 75 16 155/87 H 11/23/23 13:50 36.8 C 70 16 148/84 H 11/23/23 13:40 68 17 148/81 H 11/23/23 13:30 70 14 145/82 H 11/23/23 13:20 68 13 143/76 H 11/23/23 13:10 71 13 149/77 H 11/23/23 13:00 36.5 C 77 12 151/78 H 11/23/23 09:27 68 21 11/23/23 07:08 36.7 C 11/23/23 07:00 67 15 166/100 H 11/23/23 05:48 71 11/23/23 04:00 73 22 184/103 H 11/23/23 03:30 70 21 184/107 H 11/23/23 01:55 67 11/23/23 01:54 69 24 146/114 H 11/23/23 01:31 37.2 C 64 20 179/98 H 11/23/23 01:26 70 18 BP Pulse Ox O2 Del Method O2 Flow Rate 11/23/23 14:20 95 Nasal Cannula 2 11/23/23 14:05 93 Room Air 11/23/23 13:50 94 Room Air 11/23/23 13:40 97 Oxymask 4 11/23/23 13:30 97 Oxymask 4 11/23/23 13:20 99 Oxymask 6 11/23/23 13:10 100 Oxymask 6 11/23/23 13:00 100 Oxymask 6 11/23/23 09:27 155/96 H 95 Room Air 11/23/23 07:08 11/23/23 07:00 95 Room Air 11/23/23 05:48 11/23/23 04:00 92 11/23/23 03:30 92 11/23/23 01:55 11/23/23 01:54 99 Room Air 11/23/23 01:31 98 Room Air 11/23/23 01:26 98 Room Air Pain Intensity Abdomen: Pain Intensity: 3 Transfer of Care Handoff Completed per policy Notes Mental Status: alert / awake / arousable Patient Amnestic to Procedure: Yes Nausea / Vomiting: adequately controlled Pain: adequately controlled Airway Patency, RR, SpO2: stable & adequate BP & HR: stable & adequate Hydration State: stable & adequate Anesthetic Complications: no major complications apparent
[2023-11-23] MEDS: LACTATED RINGER'S 1,000 ML IV SCH (15:05)
[2023-11-23] MEDS: FAMOTIDINE/PF 20 MG/2 ML VIAL IV ONE (16:32)
[2023-11-24 06:48] LABS: Basophils # (auto) 0.02 K/uL (0.00-0.20); Basophils % (auto) 0.2 %; Hematocrit (blood only) 41.5 % (42.0-52.0); Hemoglobin 13.9 g/dl (14.0-18.0); Immature Granulocytes # (auto) 0.03 K/uL (0.01-0.20); Immature Granulocytes % (auto) 0.3 %; Lymphocytes # (auto) 1.21 K/uL (1.20-3.40); Lymphocytes % (auto) 10.6 %; Mean Corpuscular Hemoglobin 29.6 pg (25.0-34.0); Mean Corpuscular Hgb Conc 33.5 g/dL (32.0-36.0); Mean Corpuscular Volume 88.3 fL (80.0-100.0); Mean Platelet Volume 10.4 fL (9.4-12.4); Monocytes # (auto) 0.76 K/uL (0.11-0.59); Monocytes % (auto) 6.7 %; Neutrophils # (auto) 9.35 K/uL (1.40-6.50); Neutrophils % (auto) 82.2 %; Platelet Count 150 K/uL (130-400); RDW Coefficient of Variation 12.9 % (11.5-14.5); White Blood Count 11.37 K/ul (4.8-10.8)
[2023-11-24 07:59] LABS: Albumin Level 3.5 gm/dl (3.4-5.0); Bilirubin Direct 0.2 mg/dl (0-0.2); Total Protein 5.9 gm/dl (6.0-8.3)
--- NOTE | 2023-11-24 13:13 | Discharge Summary ---
Date of Service November 24, 2023 Principal Diagnosis Acute cholecystitis Discharge Exam Constitutional healthy appearing; not ill appearing, not in distress and not diaphoretic afebrile Respiratory normal respiratory effort; no respiratory distress, no labored breathing and does not use accessory muscles Gastrointestinal (Abdomen) Laparoscopic incisions with Dermabond, intact. No swelling or erythema, no evidence for infection Discharge Data Allergies Allergy/AdvReac Type Severity Reaction Status Date / Time No Known Allergies Allergy Verified 11/23/23 01:40 Procedures Performed Operation Date: 11/23/23 10:45 Actual Procedures p Laparoscopic Cholecystectomy(Not Applicable) - Alex Adhikari, Ordered Studies 11/23/23 01:32 CT abd pelvis IV con only Stat 11/23/23 05:05 US gallbladder Stat Hospital Course (1) Cholelithiasis: Patient see and examined with Dr. Adhikari. Recent ED labwork and imaging reviewed. There is a 1.2 cm gallstone located in the neck of the gallbladder. Patient is tender with palpation in right upper quadrant. Recommendation is surgical removal of gallbladder. Patient has been booked for Laparoscopic Cholecystectomy, Possible Open Cholecystectomy with Possible Intraoperative Cholangiogram in OR today. He has been NPO since last evening at 10PM. He has no history of abdominal surgeries. He does not currently take any daily medications or supplements. He is a current smoker. Risks of surgery were reviewed with patient by Dr. Adhikari. Consent for surgery signed by patient with Dr. Adhikari using a [employer] commissioner public [employer]. Laparoscopic cholecystectomy was performed on the afternoon of 11/23/2023. The details of that procedure may be found in the dictated operative report. Patient was admitted after surgery for an overnight stay on a low fat diet. Did well post operatively with no pain, no N/V, tolerating diet and stated he felt great the following am. He is being discharged home to follow up with me in the office. Discharge instructions were given. Total Time Total Time Spent Total Time Spent (In Minutes): 30 Discharge Plan Discharge Items Patient Disposition: Home - Self-Care Reason For Visit: S/P LAPAROSCOPIC CHOLECYSECTOMY Discharge Diagnosis: S/P Laparoscopic Cholecystectomy Activity: As commented below Lifting: No more than 10 pounds Bathing Comment: May shower beginning tomorrow, 11/24. No soaking or scrubbing y our incisions. Exercise/Sports: Wait until after follow-up appointment Driving/Machine Use: No driving while taking prescription pain medicaiton Non-emergency contact: Surgeon Call non-emergency contact if: you have any medication questions, your pain is not controlled, your temperature is above 101.5, your wound has increased redness and your wound has increased drainage Follow-up/Referrals: Alex Adhikari, DO [Physician] - (You have a follow-up appointment scheduled with Dr. Adhikari on December 02 at 11:30AM. ) PCP,NO [Primary Care Provider] - Diet: Low Fat Addtl Attending Provider Instructions: You may purchase Tylenol over the counter if needed for additional pain control over the next few days. Take per manufacturers instructions Avoid NSAIDS such as Ibuprofen until follow up appointment with Dr. Josiah kessler. Pending Studies at Discharge: Yes Studies:: Pathology report. Stand-Alone Forms: My [facility] [place], Pain - Opioid Pain Management, Smoking Cessation Medications and DC Order Prescriptions: New oxycodone 5 mg tablet 5 mg PO Q4H PRN (Reason: pain) 3 Days Qty: 14 0RF Rx Instructions: Initial therapy. Discharge Orders: Discharge Order (Routine); Ordered 11/24/23 Ordered By: Shellie Rodriguez/Other Patient Handouts: Having Laparoscopic Cholecystectomy Admission Data Admit Date/Time: 11/23/23 12:57 Attending Provider: Alex Adhkiari Admit Provider: Alex Adhikari Primary Care Provider: PCP,NO Other Interventions: Discharge Summary Assessment (RN) Last Done: 11/24/23 11:17 Coding Level of Care Code 53846 OBS Care - Discharge Diagnoses Cholelithiasis K80.20
--- NOTE | 2023-11-25 06:20 | Electrocardiogram Report ---
Test Reason : Blood Pressure : / mmHG Vent. Rate : 065 BPM Atrial Rate : 065 BPM P-R Int : 182 ms QRS Dur : 102 ms QT Int : 432 ms P-R-T Axes : 006 -06 021 degrees QTc Int : 449 ms Normal sinus rhythm Normal ECG No previous ECGs available Confirmed by Anthony Olivas ([id number]) on 11/25/2023 6:20:26 AM Referred By: REFERRED SELF Confirmed By:Anthony Olivas
== END 2023-11-24 11:56 | disposition home or self-care (01) ==
LOC: ED 01:24 → 3E 10:15 → OR 10:38